=== PATIENT | female | born 1995 | race Caucasian/White ===

== ENCOUNTER 2025-06-02 13:30 | Outpatient (RCR) | payer MEDICAID, SELFPAY ==
--- NOTE | 2025-05-21 11:48 | PTNOTE_ITS ---
PT OP Initial Eval Patient Information Outpatient Physical Therapy Treatment Date: 05/21/25 Visit Reasons: Pain in RT knee Medical Diagnosis: M25.561 Treatment Dx #1: Right Knee Pain Start of Care: 05/21/25 Date of Onset: 2010 Smoking Status Smoking Status: Never smoker Initial Assessment Subjective: Pt is a 30 y/o female reports of chronic right knee pain (03/20) since 2010. Pt also notice the knee bends backward with prolonged standing. Pt's most recent xray showed mild swelling around the knee cap. No MRI has been done thus far. Pt has limitation with walking, standing, chores, self care, cooking, cleaning, bal ance, and performing recreational activities. Objective: Right Knee AROM: all motions are WFL Right Knee MMTs: grossly 4-/5 Right Hip MMTs: grossly 3+/5 Special Test (+) Lauri (+) ant knee compression test Palpation: TTP lateral knee joint Assessment: Pt demonstrate right knee pain consistent with patellofemoral syndrome and meniscal involvement leading to difficulty with ADLs. Pt will attempt physical therapy if pain persist Pt will be refer back to provider for further consultation. 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 1) Increase right knee AROM WNL in 6 wks to be able to perform chores 2) Decrease knee pain to 2/10 in 6 wks to be able to perform squatting activities 3) Increase right knee MMTs grossly to 4/5 in 6 wks to be able to perform stairs and steps 4) Increase right hip MMTs grossly to 4-/5 in 6 wks to be able to walk more than 30 mins 5) Indep with HEP Treatment Plan 1) Manual Therapy 2) Therapeutic Activities 3) Therapeutic Exercises 4) Modalities (ice, heat) 5) Balance Training 6) Gait Training Frequency and Duration: 2 x wk for 6 wks Certification Dates: 05/21/25 to 08/20/25 Procedure Charges OP PT Eval Mod Complex 30 minutes: Yes
--- NOTE | 2025-05-29 11:35 | PT.ODAYNRPT ---
PT Outpatient Daily Note OP Daily Note Outpatient Physical Therapy Treatment Date: 05/29/25 Visit Reasons: Pain in RT knee Subjective: Pt reports R knee pain is present but mild today. Objective: Please see flow sheet for ther ex list. Assessment: Pt tolerated interventions with minimal pain. Plan: Continue with pOC. Length of Time (minutes) of Treatment: 30 Minutes Procedure Charges Therapeutic Exercise 30 minutes: Yes
--- NOTE | 2025-06-02 14:04 | PT.ODAYNRPT ---
PT Outpatient Daily Note OP Daily Note Outpatient Physical Therapy Treatment Date: 06/02/25 Visit Reasons: Pain in RT knee Subjective: No new complaints. Objective: Please see flow sheet for ther ex list. Assessment: Added lateral stepping exercises, pt tolerated well and demonstrates good mechanics. Plan: continue with poC. Length of Time (minutes) of Treatment: 30 Minutes Procedure Charges Therapeutic Exercise 30 minutes: Yes
--- NOTE | 2025-07-03 14:16 | PT.ODS1RPT ---
PT OP Progress/Discharge Note Date of Service: 07/03/25 Progress Note/DC Note Progress Note/Discharge Note: DC Note Patient Information Visit Reasons: Pain in RT knee Service Discharge Date: 07/03/25 Status Assessment: Pt has been seen for 3 visits (eval + 2 visits). Pt last treated on 06/02/25 and no showed 06/05/25 appt. Pt has not returned to therapy and will be d/c from care due to expited auth 07/03/25. Pt did not meet set goals in therapy; thank you for your referrals
== END 2025-06-10 23:59 | disposition home or self-care (01) ==
LOC: CPTX 13:30
PROVIDERS: PCP Physician Assistant Medical; Referring Provider Physician Assistant Medical; Visit Provider Physician Assistant Medical
DX: M25.561 Pain in right knee (principal); G89.29 Other chronic pain; R26.2 Difficulty in walking, not elsewhere classified; R26.89 Other abnormalities of gait and mobility; M25.461 Effusion, right knee
CPT/HCPCS: 97110; 97162

== ENCOUNTER 2025-06-05 10:37 | Emergency (ER) | payer MEDICAID, SELFPAY ==
--- NOTE | 2025-06-05 10:39 | XR_ITS ---
Examination: Knee, right , 3 views Technique: Knee AP, lateral, oblique 3 views Date and time of exam: June 05, 2025 1050 hours INDICATIONS: Right knee pain beginning 4 days ago. FINDINGS: Mild narrowing medial joint space No fracture or dislocation IMPRESSION: Mild narrowing medial joint space
[2025-06-05 11:19] VITALS: BP 121/76; PULSE 75; RESP 18; TEMP 36.9; O2SAT 99; BMI 29.4
--- NOTE | 2025-06-05 11:37 | PD.EDLOWEX ---
Lower Extremity Injury RME/HPI General Chief Complaint: Extremity Injury, Lower Stated Complaint: RIGHT KNEE PAIN X 4DAYS, H/O INJURY 2010 Time Seen by Provider: 06/05/25 10:39 Arrival date/time: 06/05/25 10:37 30-year-old female presents to the Emergency Department for complaint of right knee pain ongoing for last few days patient reports no recent injury. Patient reports ambulation made symptoms worse Limitations: no limitations Related Data Home Medications ?Medication ?Instructions ?Recorded ?Confirmed montelukast 10 mg tablet 10 mg PO QPM 09/21/20 01/13/21 Previous Rx's ?Medication ?Instructions ?Recorded albuterol sulfate 90 mcg/actuation 2 puff inhalation Q4H PRN 01/14/21 aerosol inhaler Shortness Of Breath Or Wheezing #0 grams albuterol sulfate 90 mcg/actuation 2 puff inhalation Q4H PRN 01/14/21 aerosol inhaler (ProAir HFA) shortness of breath or wheezing #6.7 grams budesonide-formoterol HFA 160 2 puff inhalation BID #10.2 grams 01/14/21 mcg-4.5 mcg/actuation aerosol inhaler (Symbicort) doxycycline hyclate 100 mg tablet 100 mg PO BID #8 tabs 01/14/21 prednisone 20 mg tablet See Taper PO QDAY #8 tabs 01/14/21 albuterol sulfate 90 mcg/actuation 2 puff inhalation QID #18 grams 04/11/21 aerosol inhaler fluticasone 100 mcg-salmeterol 50 1 inh inhalation BID #60 ea 04/11/21 mcg/dose blistr powdr for inhalation (Advair Diskus) albuterol sulfate 90 mcg/actuation 1 inh inhalation QID PRN shortness 06/16/21 aerosol inhaler of breath or wheezing #8.5 grams ipratropium bromide 17 1 puff inhalation QID #12.9 grams 06/16/21 mcg/actuation HFA aerosol inhaler (Atrovent HFA) prednisone 50 mg tablet 50 mg PO QDAY #7 tabs 06/16/21 albuterol sulfate 90 mcg/actuation 2 inh inhalation QID PRN shortness 06/17/21 aerosol inhaler (Proventil HFA) of breath or wheezing #8.5 grams albuterol sulfate 90 mcg/actuation 2 puff inhalation Q6H PRN cough / 10/05/21 aerosol inhaler wheezing #6.7 grams inhalational spacing device #1 ea 10/05/21 (Aerochamber MV spacer) prednisone 20 mg tablet See Rx Instructions .Route 10/05/21 .COMPLEX #8 tabs ibuprofen 800 mg tablet 800 mg PO TID PRN pain #30 tabs 06/05/25 Allergies Allergy/AdvReac Type Severity Reaction Status Date / Time No Known Allergies Allergy Verified 06/05/25 10:40 Review of Systems Review of Systems Systems Reviewed: All systems reviewed, normal except as documented Constitutional Constitutional: Reports system reviewed and no additional complaints, except as documented, Denies fever(s) and Denies headache(s) Eyes Eyes: Reports system reviewed and no additional complaints, except as documented and Denies blurry vision ENT Ears, Nose, Mouth, and Throat: Reports system reviewed and no additional complaints, except as documented, Denies headache(s), Denies nasal congestion and Denies nasal discharge Cardiovascular Cardiovascular: Reports system reviewed and no additional complaints, except as documented, Denies chest pain and Denies dyspnea Respiratory Respiratory: Reports system reviewed and no additional complaints, except as documented, Denies chest congestion, Denies cough and Denies dyspnea Gastrointestinal Gastrointestinal: Reports system reviewed and no additional complaints, except as documented and Denies abdominal pain Musculoskeletal Musculoskeletal: Reports system reviewed and no additional complaints, except as documented, Reports arthralgias, Denies deformity, Denies numbness, Reports stiffness and Denies tingling Integumentary/Breasts Skin/Breast: Reports system reviewed and no additional complaints, except as documented and Denies rash Neurologic Neurologic: Reports system reviewed and no additional complaints, except as documented, Reports as per HPI, Denies headache(s), Denies numbness and Denies tingling Past Medical History Past Medical History CARDIAC: Negative Congestive Heart Failure RESPIRATORY: Positive Asthma; Negative Chronic Obstructive Pulmonary Disease (COPD) GENITOURINARY: Negative Renal Disease ENDOCRINE: Positive Hyperthyroidism and Hypothyroidism; Negative Diabetes Mellitus Type 1 or Diabetes Mellitus Type 2 Surgical History SURGICAL: Positive Throat Surgery Social History SMOKING STATUS: Never smoker SUBSTANCE USE: does not use ED Exam General Limitations: Present no limitations General appearance: Present alert and in no apparent distress Head Head exam: Present atraumatic Eye Eye exam: Present normal appearance, PERRL and EOMI ENT ENT exam: Present normal exam, normal oropharynx and mucous membranes moist Neck Neck exam: Present normal inspection, full ROM and trachea midline Chest Chest inspection: Present normal inspection and symmetric chest wall rise Respiratory Respiratory exam: Present normal lung sounds bilaterally Cardiovascular Cardiovascular exam: Present regular rate, normal rhythm and normal heart sounds Abdominal Exam Abdominal exam: Present soft and normal bowel sounds Extremities Exam Extremities exam: Present full ROM, tenderness, normal capillary refill and joint swelling (Mild swelling right knee) Back Exam Back exam: Present normal inspection and full ROM Neurological Exam Neurological exam: Present alert, oriented X3 and CN II-XII intact Psychiatric Psychiatric exam: Present normal affect and normal mood Skin Skin exam: Present warm, dry, intact and normal color Course Quality Measures none Orders Category Date Time Status XR knee RT 3V Stat Exams 06/05/25 10:39 Completed Ketorolac Inj [Toradol Inj] Med 06/05/25 11:37 Discontinued 30 mg IM X1 ONE Vital Signs Vital signs: Vital Signs Temperature 98.4 F 06/05/25 11:19 Pulse Rate 75 06/05/25 11:19 Respiratory Rate 18 06/05/25 11:19 Blood Pressure 121/76 06/05/25 11:19 Pulse Oximetry (%) 99 06/05/25 11:19 Oxygen Delivery Method Room Air 06/05/25 11:19 O2 saturation 99% on room air within normal limits Extremity Injury, Lower MDM Narrative MDM Narrative:: 30-year-old female presents to the Emergency Department for complaint of right knee pain ongoing for last few days patient reports no recent injury. Patient reports ambulation made symptoms worse On exam patient well-appearing patient does not appear look toxic no acute distress X-ray of the right knee obtained no acute fracture dislocation noted Explained to the patient presents persist or worsen she should have an outpatient MRI with her PCP Patient given Toradol for pain Patient data External records reviewed:: [facility] previous records Clinical information provided by:: patient Social determinants that could affect healthcare access:: none Patient has the following chronic illnesses:: History How is presenting disease/condition affected by chronic disease/condition?: uneffected by Evaluation data The following diagnostics were reviewed and interpreted by me:: radiology exam(s) Lab and/or radiology exams considered but not ordered:: Radiology obtained Interpretation Summary: Reviewed by me Medications / Prescriptions Medications or Prescriptions considered but not ordered:: Given Medication administrations:: Medication Administration History Discontinued Medications Ketorolac Tromethamine (Ketorolac Inj 30 Mg/Ml Vial) 30 mg IM X1 ONE Stop: 06/05/25 11:38 Given Consultations Consultation(s) initiated? (list below): No Diagnosis Extremity Injury, Lower Differential Diagnosis: acute internal derangement of knee and other Most likely diagnosis given after review of the tests above:: Knee sprain Admission Indicated Admission indicated?: not indicated Admission Request Was there a request for admission?: No Disposition Plan Disposition Plan: Discharge Discharge Attestation Discharge Attestation: The patient and all family members were given an opportunity to ask questions and understood the discharge instructions. Discharge instructions specifically effects, indications for sooner follow up or return to the emergency department, and the expected course of current diagnosis. Patient condition: Stable Discharge Plan Plan Patient Disposition: HOME (Self Care) Discharge Disposition comment: Stable Prescriptions/Referrals Prescriptions/Med Rec: New ibuprofen 800 mg tablet 800 mg PO TID PRN (Reason: pain) Qty: 30 0RF No Action montelukast 10 mg tablet 10 mg PO QPM Patient Comments: TAKE 1 TABLET BY MOUTH EVERY DAY IN THE EVENING NEEDED albuterol sulfate 90 mcg/actuation HFA aerosol inhaler 2 puff inhalation QID Qty: 18 0RF fluticasone propion-salmeterol [Advair Diskus] 100-50 mcg/dose blister with device 1 inh inhalation BID Qty: 60 0RF albuterol sulfate [Proventil HFA] 90 mcg/actuation HFA aerosol inhaler 2 inh inhalation QID PRN (Reason: shortness of breath or wheezing) Qty: 8.5 0RF albuterol sulfate 90 mcg/actuation HFA aerosol inhaler 2 puff INH Q6H PRN (Reason: cough / wheezing ) Qty: 6.7 0RF Rx Instructions: administer with spacer (DME) Aerochamber MV spacer See Dose Instructions .ROUTE .MEDSUPPLY Qty: 1 0RF Dose Instruction: As directed Rx Instructions: As directed prednisone 20 mg tablet See Rx Instructions .ROUTE .COMPLEX Qty: 8 0RF Rx Instructions: 2 tabs (40mg) PO QAM x 3 days, then 1 tab (20mg) PO QAM x 2 days doxycycline hyclate 100 mg Tablet 100 mg PO BID Qty: 8 0RF albuterol sulfate [ProAir HFA] 90 mcg/actuation HFA aerosol inhaler 2 puff inhalation Q4H PRN (Reason: shortness of breath or wheezing) Qty: 6.7 0RF budesonide-formoterol [Symbicort] 160-4.5 mcg/actuation HFA aerosol inhaler 2 puff inhalation BID Qty: 10.2 0RF prednisone 20 mg tablet See Taper PO QDAY Qty: 8 0RF Taper: Prednisone Taper 20 mg DAILY for 2 Days and 0 Hour 10 mg DAILY for 2 Days and 0 Hour 5 mg DAILY for 7 Days and 0 Hour Rx Instructions: 2 tabs PO Qday x 2 days then 1 tab PO Qday x 2 days then 1/2 tab PO Qday x 4 days then stop. albuterol sulfate 90 mcg/actuation HFA aerosol inhaler 2 puff INH Q4H PRN (Reason: Shortness Of Breath Or Wheezing) Qty: 0 0RF prednisone 50 mg tablet 50 mg PO QDAY Qty: 7 0RF albuterol sulfate 90 mcg/actuation HFA aerosol inhaler 1 inh inhalation QID PRN (Reason: shortness of breath or wheezing) Qty: 8.5 0RF Atrovent HFA 17 mcg/actuation HFA aerosol inhaler 1 puff inhalation QID Qty: 12.9 0RF Problem List Clinical Impression: Right knee sprain Patient/Caregiver Discharge Instructions Education Materials: ED Knee Sprain Additional Instructions: Please follow up with your primary care doctor in the next 24-48hrs for any worsening symptoms return here immediately Print Language: Amharic Stand Alone Forms: Elvia Award Info., Patient Portal Info Letter PA/YARD SPOTTER Supervising Physician PA/JOSE ANGEL Supervising Physician: Dr. andres
[2025-06-05] MEDS: KETOROLAC INJ 30 MG/ML VIAL IM (11:53)
== END 2025-06-05 12:00 | disposition home or self-care (01) ==
LOC: SERX 12:06
PROVIDERS: Emergency Provider Nurse Practitioner Primary Care; PCP Family Medicine
DX: S83.91XA Sprain of unspecified site of right knee, initial encounter (principal)
CPT/HCPCS: 73562; 96372; 99283; J1885

== ENCOUNTER 2025-08-18 12:17 | Emergency (ER) | payer MEDICAID, SELFPAY ==
--- NOTE | 2025-08-18 12:31 | XR_ITS ---
AP and lateral radiographs of the lumbosacral spine on 08/18/2025 at 1:42 p.m. CLINICAL INDICATION: Low back pain for 2 days no known trauma FINDINGS: The spine is visualized from T11 down through the lumbar spine and sacrum the appearance of the vertebra, interspaces and alignment all appear normal. No bony abnormalities are identified in the visible portion of the spine, ribs, or bony pelvis or sacrum. Articular cartilage and joint space appear normal within both right and left hip joint No abnormal calcifications are seen anywhere in the abdomen. Bowel gas pattern appears normal. IMPRESSION: 1. No specific abnormalities are identified anywhere in the lower thoracic and lumbosacral spine and the disc spaces appear reasonably normal throughout. 2. No abnormalities are seen anywhere in the visible abdomen or pelvis
[2025-08-18 13:21] LABS: HCG Qualitative,Urine Negative
--- NOTE | 2025-08-18 13:36 | EDNOTE_ITS ---
ED Back Injury Pain RME/HPI General Chief Complaint: Back Pain/Injury Stated Complaint: LOW BACK PAIN 05/21 Time Seen by Provider: 08/18/25 12:26 Source: patient Arrival date/time: 08/18/25 12:17 30-year-old female with no known medical history presents to the emergency room with a chief complaint of lumbar back pain x 2 days Mode of arrival: ambulatory Limitations: no limitations Related Data Home Medications ?Medication ?Instructions ?Recorded ?Confirmed montelukast 10 mg tablet 10 mg PO QPM 09/21/20 Previous Rx's ?Medication ?Instructions ?Recorded albuterol sulfate 90 mcg/actuation 2 puff inhalation Q 4H PRN 01/14/21 aerosol inhaler Shortness Of Breath Or Wheez ing #0 grams albuterol sulfate 90 mcg/actuation 2 puff inhalation Q 4H PRN 01/14/21 aerosol inhaler (ProAir HFA) shortness of breath or wh eezing #6.7 grams budesonide-formoterol HFA 160 2 puff inhalation BID #1 0.2 grams 01/14/21 mcg-4.5 mcg/actuation aerosol inhaler (Symbicort) doxycycline hyclate 100 mg tablet 100 mg PO BID #8 tab s 01/14/21 prednisone 20 mg tablet See Taper PO QDAY #8 tabs albuterol sulfate 90 mcg/actuation 2 puff inhalation Q ID #18 grams 04/11/21 aerosol inhaler fluticasone 100 mcg-salmeterol 50 1 inh inhalation BID #60 ea 04/11/21 mcg/dose blistr powdr for inhalation (Advair Diskus) albuterol sulfate 90 mcg/actuation 1 inh inhalation QI D PRN shortness 06/16/21 aerosol inhaler of breath or wheezing #8.5 g martinez ipratropium bromide 17 1 puff inhalation QID #12.9 grams 06/16/21 mcg/actuation HFA aerosol inhaler (Atrovent HFA) prednisone 50 mg tablet 50 mg PO QDAY #7 tabs albuterol sulfate 90 mcg/actuation 2 inh inhalation QI D PRN shortness 06/17/21 aerosol inhaler (Proventil HFA) of breath or wheezing #8.5 grams albuterol sulfate 90 mcg/actuation 2 puff inhalation Q 6H PRN cough / 10/05/21 aerosol inhaler wheezing #6.7 grams inhalational spacing device #1 ea 10/05/21 (Aerochamber MV spacer) prednisone 20 mg tablet See Rx Instructions .Route 0 10/05/21 .COMPLEX #8 tabs ibuprofen 800 mg tablet 800 mg PO TID PRN pain #30 t abs 06/05/25 Allergies Allergy/AdvReac Type Severity Reaction Status Date / Time No Known Allergies Allergy Verified 08/18/25 12:19 Review of Systems Review of Systems Systems Reviewed: All systems reviewed, normal except as documented Constitutional Constitutional: Reports system reviewed and no additional complaints, except as documented, Denies fatigue, Denies fever(s), Denies headache(s) and Denies weakness Eyes Eyes: Reports system reviewed and no additional complaints, except as documented, Denies blurry vision and Denies change in vision ENT Ears, Nose, Mouth, and Throat: Reports system reviewed and no additional complaints, except as documented, Denies otalgia, Denies headache(s), Denies nasal congestion, Denies throat swelling and Denies vertigo Cardiovascular Cardiovascular: Reports system reviewed and no additional complaints, except as documented, Denies chest pain, Denies dyspnea and Denies dyspnea on exertion Respiratory Respiratory: Reports system reviewed and no additional complaints, except as documented, Denies chest congestion, Denies cough, Denies dyspnea, Denies dyspnea on exertion and Denies wheezing Gastrointestinal Gastrointestinal: Reports system reviewed and no additional complaints, except as documented, Denies abdominal pain, Denies cramping, Denies nausea and Denies vomiting Genitourinary Genitourinary: Reports system reviewed and no additional complaints, except as documented Musculoskeletal Musculoskeletal: Reports system reviewed and no additional complaints, except as documented and Reports back pain Integumentary/Breasts Skin/Breast: Reports system reviewed and no additional complaints, except as documented and Denies wounds Neurologic Neurologic: Reports system reviewed and no additional complaints, except as documented, Denies confusion, Denies headache(s), Denies lack of coordination, Denies vertigo and Denies weakness Psychiatric Psychiatric: Reports system reviewed and no additional complaints, except as documented, Denies anxiety, Denies confusion, Denies depression, Denies paranoia, Denies suicidal ideation and Denies tactile hallucinations Endocrine Endocrine: Reports system reviewed and no additional complaints, except as documented and Denies fatigue Hematologic/Lymphatic Hematologic/Lymphatic: Reports system reviewed and no additional complaints, except as documented and Denies lymphadenopathy Allergic/Immunologic Allergic/Immunologic: Reports system reviewed and no additional complaints, except as documented, Denies throat swelling, Denies urticaria and Denies wheezing Past Medical History Past Medical History CARDIAC: Negative Congestive Heart Failure RESPIRATORY: Positive Asthma; Negative Chronic Obstructive Pulmonary Disease (COPD) GENITOURINARY: Negative Renal Disease ENDOCRINE: Positive Hyperthyroidism and Hypothyroidism; Negative Diabetes Mellitus Type 1 or Diabetes Mellitus Type 2 Surgical History SURGICAL: Positive Throat Surgery Social History SMOKING STATUS: Never smoker SUBSTANCE USE: does not use ED Exam General Limitations: Present no limitations General appearance: Present alert and in no apparent distress Head Head exam: Present atraumatic Eye Eye exam: Present normal appearance, PERRL and EOMI ENT ENT exam: Present normal exam, normal oropharynx and mucous membranes moist Neck Neck exam: Present normal inspection, full ROM and trachea midline Chest Chest inspection: Present normal inspection and symmetric chest wall rise Respiratory Respiratory exam: Present normal lung sounds bilaterally Cardiovascular Cardiovascular exam: Present regular rate, normal rhythm and normal heart sounds Abdominal Exam Abdominal exam: Present soft and normal bowel sounds Extremities Exam Extremities exam: Present normal inspection and full ROM Back Exam Back exam: Present normal inspection, full ROM and vertebral tenderness; Absent CVA tenderness (R) or CVA tenderness (L) Neurological Exam Neurological exam: Present alert, oriented X3 and CN II-XII intact Psychiatric Psychiatric exam: Present normal affect and normal mood Skin Skin exam: Present warm, dry, intact and normal color Course Quality Measures none Orders Category Date Time Status XR lumbar spine 2-3V Stat Exams 08/18/25 12:31 Completed HCG Qualitative,Urine Stat Lab 08/18/25 12:38 Completed Ketorolac Inj [Toradol Inj] Med 08/18/25 13:45 Discontinued 30 mg IM X1 ONE Back Pain / Injury MDM Narrative MDM Narrative:: 30-year-old female with no known medical history presents to the emergency room with a chief complaint of lumbar back pain x 2 days Patient is hemodynamically stable and in no apparent distress Physical examination shows lower lumbar tenderness with palpation. The patient denies any saddle anesthesia. There is no loss of bowel or bladder function. There is no numbness to the lower extremities. The patient has a normal steady gait. X-ray of the lumbar spine was completed and was negative for any acute findings Patient was discharged and educated to follow-up with primary care provider in the next 24 to 48 hours and return to the emergency room for any evidence of worsening signs or symptoms Patient data External records reviewed:: [facility] previous records Clinical information provided by:: patient Social determinants that could affect healthcare access:: none Patient has the following chronic illnesses:: No chronic illness How is presenting disease/condition affected by chronic disease/condition?: no chronic disease Evaluation data The following diagnostics were reviewed and interpreted by me:: lab results and radiology exam(s) Lab and/or radiology exams considered but not ordered:: Labs and radiology exams considered and ordered Interpretation Summary: Lumbar [id number]: The spine is visualized from T11 down through the lumbar spine and sacrum the appearance of the vertebra, interspaces and alignment all appear normal. No bony abnormalities are identified in the visible portion of the spine, ribs, or bony pelvis or sacrum. Articular cartilage and joint space appear normal within both right and left hip joint No abnormal calcifications are seen anywhere in the abdomen. Bowel gas pattern appears normal. IMPRESSION: 1. No specific abnormalities are identified anywhere in the lower thoracic and lumbosacral spine and the disc spaces appear reasonably normal throughout. 2. No abnormalities are seen anywhere in the visible abdomen or pelvis Medications / Prescriptions Medications or Prescriptions considered but not ordered:: Medication given Medication administrations:: Medication Administration History Discontinued Medications Ketorolac Tromethamine (Ketorolac Inj 60 Mg/2 Ml Vial) 30 mg IM X1 ONE Stop: 08/18/25 13:46 Last Admin: 08/18/25 14:18 Dose: 30 mg Documented By: LP Medication given Consultations Consultation(s) initiated? (list below): No Diagnosis Differential diagnosis back pain/injury: lumbar radiculopathy, sciatica and strain of lumbar region Most likely diagnosis given after review of the tests above:: Strain of lumbar region Admission Indicated Admission indicated?: not indicated Admission Request Was there a request for admission?: No Disposition Plan Disposition Plan: Discharge Discharge Attestation Discharge Attestation: The patient and all family members were given an opportunity to ask questions and understood the discharge instructions. Discharge instructions specifically effects, indications for sooner follow up or return to the emergency department, and the expected course of current diagnosis. Patient condition: Stable Discharge Plan Plan Patient Disposition: HOME (Self Care) Discharge Disposition comment: Stable Prescriptions/Referrals Prescriptions/Med Rec: No Action montelukast 10 mg tablet 10 mg PO QPM Patient Comments: TAKE 1 TABLET BY MOUTH EVERY DAY IN THE EVENING NEEDED albuterol sulfate 90 mcg/actuation HFA aerosol inhaler 2 puff inhalation QID Qty: 18 0RF fluticasone propion-salmeterol [Advair Diskus] 100-50 mcg/dose blister with device 1 inh inhalation BID Qty: 60 0RF albuterol sulfate [Proventil HFA] 90 mcg/actuation HFA aerosol inhaler 2 inh inhalation QID PRN (Reason: shortness of breath or wheezing) Qty: 8.5 0RF albuterol sulfate 90 mcg/actuation HFA aerosol inhaler 2 puff INH Q6H PRN (Reason: cough / wheezing ) Qty: 6.7 0RF Rx Instructions: administer with spacer (DME) Aerochamber MV spacer See Dose Instructions .ROUTE .MEDSUPPLY Qty: 1 0RF Dose Instruction: As directed Rx Instructions: As directed prednisone 20 mg tablet See Rx Instructions .ROUTE .COMPLEX Qty: 8 0RF Rx Instructions: 2 tabs (40mg) PO QAM x 3 days, then 1 tab (20mg) PO QAM x 2 days doxycycline hyclate 100 mg Tablet 100 mg PO BID Qty: 8 0RF albuterol sulfate [ProAir HFA] 90 mcg/actuation HFA aerosol inhaler 2 puff inhalation Q4H PRN (Reason: shortness of breath or wheezing) Qty: 6.7 0RF budesonide-formoterol [Symbicort] 160-4.5 mcg/actuation HFA aerosol inhaler 2 puff inhalation BID Qty: 10.2 0RF prednisone 20 mg tablet See Taper PO QDAY Qty: 8 0RF Taper: Prednisone Taper 20 mg DAILY for 2 Days and 0 Hour 10 mg DAILY for 2 Days and 0 Hour 5 mg DAILY for 7 Days and 0 Hour Rx Instructions: 2 tabs PO Qday x 2 days then 1 tab PO Qday x 2 days then 1/2 tab PO Qday x 4 days then stop. albuterol sulfate 90 mcg/actuation HFA aerosol inhaler 2 puff INH Q4H PRN (Reason: Shortness Of Breath Or Wheezing) Qty: 0 0RF prednisone 50 mg tablet 50 mg PO QDAY Qty: 7 0RF albuterol sulfate 90 mcg/actuation HFA aerosol inhaler 1 inh inhalation QID PRN (Reason: shortness of breath or wheezing) Qty: 8.5 0RF Atrovent HFA 17 mcg/actuation HFA aerosol inhaler 1 puff inhalation QID Qty: 12.9 0RF ibuprofen 800 mg tablet 800 mg PO TID PRN (Reason: pain) Qty: 30 0RF Referrals: Frankie Dior MD [Primary Care Provider, Family Practice] - In 1 week Problem List Clinical Impression: Strain of lumbar region Patient/Caregiver Discharge Instructions Education Materials: ED Back Sprain/Strain Additional Instructions: Please follow-up with your primary care provider in the next 24 to 48 hours X-rays of the lumbar spine were negative for any acute findings For any evidence of worsening signs or symptoms return to the emergency room immediately Print Language: Romanian Stand Alone Forms: Elvia Award Info., Work/School Release, Patient Portal Info Letter
[2025-08-18] MEDS: KETOROLAC INJ 60 MG/2 ML VIAL 30 MG IM (14:18)
== END 2025-08-18 14:42 | disposition home or self-care (01) ==
PROVIDERS: Nurse Practitioner Family; Emergency Provider Emergency Medicine; PCP Family Medicine
DX: S39.012A Strain of muscle, fascia and tendon of lower back, initial encounter (principal); X58.XXXA Exposure to other specified factors, initial encounter
CPT/HCPCS: 72100; 81025; 96372; 99283; J1885